=== PATIENT | male | born 1985 | race Caucasian/White ===

== ENCOUNTER 2017-03-04 19:28 | Inpatient (IN) | payer OTHER ==
--- NOTE | 2017-03-04 22:12 | ER Document Report ---
ED Medical Screen (RME) - General Chief Complaint: Abdominal Pain Stated Complaint: ABDOMINAL PAIN Time Seen by Provider: 03/04/17 22:10 Notes: Patient is a 31-year-old male who comes emergency department for chief complaint of right lower quadrant pain that started last night but became more noticeable today, he states that it hurts more to walk and improves when he is holding still. He denies radiation of pain. He denies vomiting. He had a normal and slightly loose bowel movement earlier. He denies any surgeries or daily medications. TRAVEL OUTSIDE OF THE [place] IN LAST 30 DAYS: No - Related Data Allergies/Adverse Reactions: No Known Allergies Allergy (Unverified 03/04/17 20:22) Past Medical History Renal/ Medical History: Denies: Hx Peritoneal Dialysis Physical Exam - Vital signs Vitals: Temp Pulse Resp BP Pulse Ox 99.0 F 112 H 18 123/84 97 03/04/17 20:20 03/04/17 20:20 03/04/17 20:20 03/04/17 20:20 03/04/17 20:20 - Abdominal Tenderness: Tender - Tender in right lower quadrant, otherwise unremarkable abdomen, exam limited by sitting position Course - Re-evaluation Re-evalutation: Is a young male with tenderness in the right lower quadrant only, worsening since yesterday, initiating drinking of contrast pending better evaluation of abdomen in a room 03/04/17 22:12 I have greeted and performed a rapid initial assessment of this patient. A comprehensive ED assessment and evaluation of the patient, analysis of test results and completion of the medical decision making process will be conducted by additional ED providers. - Vital Signs Vital signs: Temp Pulse Resp BP Pulse Ox 99.0 F 112 H 18 123/84 97 03/04/17 20:20 03/04/17 20:20 03/04/17 20:20 03/04/17 20:20 03/04/17 20:20
[2017-03-04 22:42] LABS: ABSOLUTE BASOPHILS # (AUTO) 0.1 10^3/uL (0.0-0.2); ABSOLUTE MONOCYTES (AUTO) 1.1 10^3/uL (0.1-1.4); ABSOLUTE NEUT (AUTO) 8.9 10^3/uL (1.7-8.2); BASOPHILS % (AUTO) 0.9 % (0-2); EOSINOPHILS % (AUTO) 0.3 % (0-6); HEMATOCRIT 47.7 % (37.9-51.0); HEMOGLOBIN 15.5 g/dL (13.5-17.0); HGB HCT DIFFERENCE -1.2; LYMPHOCYTES % (AUTO) 16.8 % (13-45); MEAN CORPUSCULAR HEMOGLOBIN 27.5 pg (27.0-33.4); MEAN CORPUSCULAR HGB CONC 32.4 g/dL (32.0-36.0); MEAN CORPUSCULAR VOLUME 85 fl (80-97); MONOCYTES % (AUTO) 8.9 % (3-13); RED BLOOD COUNT 5.63 10^6/uL (4.35-5.55); RED CELL DISTRIBUTION WIDTH 13.7 % (11.5-14.0); SEGMENTED NEUTROPHILS % (AUTO) 73.1 % (42-78); WHITE BLOOD COUNT 12.2 10^3/uL (4.0-10.5)
[2017-03-04 22:55] LABS: AMORPHOUS SEDIMENT,URINE TRACE /HPF; APPEARANCE,URINE SLIGHTLY-CLOUDY; BILIRUBIN,URINE NEGATIVE (NEGATIVE); GLUCOSE, URINE NEGATIVE (NEGATIVE); KETONES,URINE NEGATIVE (NEGATIVE); LEUKOCYTE ESTERASE,URINE NEGATIVE (NEGATIVE); NITRITE,URINE NEGATIVE (NEGATIVE); PROTEIN,URINE NEGATIVE (NEGATIVE); UROBILINOGEN,URINE NEGATIVE mg/dL (<2.0)
[2017-03-04 23:00] LABS: ALANINE AMINOTRANSFERASE 46 U/L (21-72); ALBUMIN 4.9 g/dL (3.5-5.0); ALKALINE PHOSPHATASE 71 U/L (38-126); ANION GAP 13 (5-19); ASPARTATE AMINO TRANSFERASE 23 U/L (17-59); BILIRUBIN,DIRECT 0.2 mg/dL (0.0-0.4); BILIRUBIN,TOTAL 0.7 mg/dL (0.2-1.3); BLOOD UREA NITROGEN 11 mg/dL (7-20); CARBON DIOXIDE 25 mmol/L (22-30); CHLORIDE 103 mmol/L (98-107); GLUCOSE 92 mg/dL (75-110); POTASSIUM 4.5 mmol/L (3.6-5.0); SODIUM 140.9 mmol/L (137-145); TOTAL PROTEIN 7.7 g/dL (6.3-8.2)
[2017-03-04] MEDS ORDERED: NORMAL SALINE 1000 ML 1,000 ML IV ONE (23:04)
--- NOTE | 2017-03-04 23:04 | ER Document Report ---
ED GI/ - General Mode of Arrival: Ambulatory Information source: Patient TRAVEL OUTSIDE OF THE [place] IN LAST 30 DAYS: No - HPI Patient complains to provider of: Abdominal pain Onset: Other - Refer to HPI notes Location: RLQ Associated symptoms: Nausea <YOBANY RAMÍREZ - Last Filed: 03/05/17 00:43> - HPI Pain Level: 5 <AKOSUA MULLEN - Last Filed: 03/05/17 02:46> - General Chief Complaint: Abdominal Pain Stated Complaint: ABDOMINAL PAIN Time Seen by Provider: 03/04/17 22:10 Notes: Patient is a 31 year old male presenting to the emergency department for right lower quadrant abdominal pain onset since last night. Patient also had some diarrhea and nausea. Patient describes his pain as sharp and it is exacerbated with walking. Patient's last PO was ice cream around 17:00 and has drank lots of water today. Patient denies any fever. Patient has no known allergies. ( YOBANY RAMÍREZ) - Related Data Allergies/Adverse Reactions: No Known Allergies Allergy (Unverified 03/04/17 20:22) Past Medical History - General Information source: Patient - Social History Smoking Status: Never Smoker Cigarette use (# per day): No Chew tobacco use (# tins/day): No Frequency of alcohol use: None Drug Abuse: None Family History: None Patient has suicidal ideation: No Patient has homicidal ideation: No - Medical History Medical History: Negative Surgical Hx: Negative <YOBANY RAMÍREZ - Last Filed: 03/05/17 00:43> Review of Systems - Review of Systems Constitutional: No symptoms reported EENT: No symptoms reported Cardiovascular: No symptoms reported Respiratory: No symptoms reported Gastrointestinal: See HPI, Abdominal pain, Nausea Genitourinary: No symptoms reported Male Genitourinary: No symptoms reported Musculoskeletal: No symptoms reported Skin: No symptoms reported Hematologic/Lymphatic: No symptoms reported Neurological/Psychological: No symptoms reported -: Yes All other systems reviewed and negative <YOBANY RAMÍREZ - Last Filed: 03/05/17 00:43> Physical Exam - Vital signs Interpretation: Tachycardic <YOBANY RAMÍREZ - Last Filed: 03/05/17 00:43> <AKOSUA MULLEN - Last Filed: 03/05/17 02:46> - Vital signs Vitals: Temp Pulse Resp BP Pulse Ox 99.0 F 112 H 18 123/84 97 03/04/17 20:20 03/04/17 20:20 03/04/17 20:20 03/04/17 20:20 03/04/17 20:20 - Notes Notes: GENERAL: Alert, interacts well. No acute distress. HEAD: Normocephalic, atraumatic. EYES: Pupils equal, round, and reactive to light. Extraocular movements intact. ENT: Oral mucosa moist, tongue midline. NECK: Full range of motion. Supple. Trachea midline. LUNGS: Clear to auscultation bilaterally, no wheezes, rales, or rhonchi. No respiratory distress. HEART: Regular rate and rhythm. No murmurs, gallops, or rubs. ABDOMEN: RLQ tenderness to palpation not over McBurney's point. Non-distended. Bowel sounds present in all 4 quadrants. EXTREMITIES: Moves all 4 extremities spontaneously. No edema, radial pulses 2/4 bilaterally. No cyanosis. NEUROLOGICAL: Alert and oriented x3. Normal speech. PSYCH: Normal affect, normal mood. SKIN: Warm, dry, normal turgor. No rashes or lesions noted. (YOBANY RAMÍREZ) Course - Laboratory Result Diagrams: 03/04/17 22:15 03/04/17 22:15 <YOBANY RAMÍREZ - Last Filed: 03/05/17 00:43> - Laboratory Result Diagrams: 03/04/17 22:15 03/04/17 22:15 <AKOSUA MULLEN - Last Filed: 03/05/17 02:46> - Re-evaluation Re-evalutation: 03/05/17 01:55 CBC shows slight leukocytosis of 12.2 otherwise unremarkable, CMP unremarkable, urinalysis unremarkable, CT scan of the abdomen and pelvis shows early appendicitis without any signs of rupture. 03/05/17 01:[address] May who agrees to accept the patient to his service. He gave initial orders for antibiotics and he will do surgery on the patient during the day. (AKOSUA MULLEN) - Vital Signs Vital signs: Temp Pulse Resp BP Pulse Ox 98.5 F 79 16 115/71 97 03/05/17 02:28 03/05/17 02:28 03/05/17 02:28 03/05/17 02:28 03/05/17 02:28 - Laboratory Laboratory results interpreted by me: 03/04/17 22:15 WBC 12.2 H RBC 5.63 H Absolute Neutrophils 8.9 H Discharge <YOBANY RAMÍREZ - Last Filed: 03/05/17 00:43> - Discharge Admitting Provider: Surgicalist - [facility] Unit Admitted: Surgical Floor <AKOSUA MULLEN - Last Filed: 03/05/17 02:46> - Discharge Clinical Impression: Acute appendicitis Qualifiers: Acute appendicitis type: other Qualified Code(s): K35.89 - Other acute appendicitis Condition: Stable Disposition: ADMITTED INPATIENT Scribe Attestation: 03/05/17 02:46 I personally performed the services described in the documentation, reviewed and edited the documentation which was dictated to the scribe in my presence, and it accurately records my words and actions. (AKOSUA MULLEN) Scribe Documentation - Scribe Written by Scribe:: Lilian Bradley 03/05/2017 00:43 acting as scribe for :: Raj <YOBANY RAMÍREZ - Last Filed: 03/05/17 00:43>
[2017-03-05] MEDS ORDERED: HYDROMORPHONE HCL INJ/PF 2 MG/ML AMPULE IV ONE (01:54)
--- NOTE | 2017-03-05 01:58 | RADIOLOGY REPORT (SQ) ---
EXAM DESCRIPTION: CT ABD/PELVIS WITH IV ORAL COMPLETED DATE/TIME: 03/05/2017 1:38 am REASON FOR STUDY: RLQ pain COMPARISON: None. TECHNIQUE: CT scan of the abdomen and pelvis performed using helical scanning technique with dynamic intravenous contrast injection and with oral contrast. Images reviewed with lung, soft tissue, and b one windows. Reconstructed coronal and sagittal MPR images reviewed. Delayed images for evaluation of the urinary system also acquired. All images stored on PACS. All CT scanners at this facility use dose modulation, iterative reconstruction, and/or weight based d osing when appropriate to reduce radiation dose to as low as reasonably achievable (ALARA). [facility]: Dose Right [facility]: CareDose [facility]: Dose Right [facility]: Teradose 4D [facility]: [employer]ights CONTRAST TYPE AND DOSE: contrast/concentration: Isovue 370.00 mg/ml; Total Contrast Delivered: 99.0 ml; Total Saline Delivered: 72.0 ml RENAL FUNCTION: None required. The patient is less than 50 years old. RADIATION DOSE: Up-to-date CT equipment and radiation dose reduction techniques were employed. CTDIv ol: 10.2 mGy. DLP: 1178 mGy-cm.. LIMITATIONS: None. FINDINGS: LOWER CHEST: No consolidation or pleural effusion. LIVER: Normal size. No masses. No dilated ducts. SPLEEN: Normal size. PANCREAS: No significant calcifications. No adjacent inflammation or peripancreatic fluid collections . Pancreatic duct not dilated. GALLBLADDER: Present. ADRENAL GLANDS: No significant masses or asymmetry. RIGHT KIDNEY AND URETER: No significant calcifications. No hydronephrosis or hydroureter. LEFT KIDNEY AND URETER: Subcentimeter hypodense area at the interpolar region of the left kidney, too small to be accurately characterize. No significant calcifications. No hydronephrosis or hydroure ter. AORTA AND VESSELS: No abdominal aortic aneurysm. Renal arteries, SMA, celiac without stenosis. RETROPERITONEUM: No retroperitoneal hemorrhage or masses. BOWEL AND PERITONEAL CAVITY: No small bowel obstruction, oral contrast is present in the colon. No f ree fluid or free air. APPENDIX: Dilated to 10 mm. There is mild periappendiceal soft tissue stranding. No adjacent fluid collection to suggest abscess formation at this time. PELVIS: The urinary bladder is distended. No pelvic mass. No free fluid. ABDOMINAL WALL: Small fat containing umbilical hernia. Small fat containing left inguinal hernia. BONES: No acute findings. IMPRESSION: Acute appendicitis. COMMENT: Pertinent findings on the imaging study reported as a CRITICAL RESULT to Dr. Anthony At01:4 8 hrs on 03/05/2017. Category of Critical Result: Acute appendicitis. TECHNICAL DOCUMENTATION: JOB ID: [id number] Quality ID # [id number]: Final reports with documentation of one or more dose reduction techniques (e.g., Au tomated exposure control, adjustment of the mA and/or kV according to patient size, use of iterative reconstruction technique) 2010 [employer]- All Rights Reserved
[2017-03-05] MEDS: CEFAZOLIN 2 GM/D5W RTU 2 GM/50 ML RTUPB IV SCH ×4 (02:45→20:12)
[2017-03-05] MEDS: ONDANSETRON HCL INJ/PF 4 MG/2 ML SDV IV PRN ×3 (02:53→22:48)
[2017-03-05] MEDS: RINGERS SOLUTION,LACTATED 1,000 ML IV PRN ×3 (03:47→17:41)
[2017-03-05] MEDS ORDERED: ONDANSETRON HCL INJ/PF 4 MG/2 ML SDV ONE (08:55)
[2017-03-05] MEDS ORDERED: GLYCOPYRROLATE INJ 0.4 MG/2 ML VIAL ONE (08:55)
[2017-03-05] MEDS ORDERED: DEXAMETHASONE SOD PHOSPHATE INJ 4 MG/1 ML VIAL ONE (08:55)
[2017-03-05] MEDS ORDERED: NEOSTIGMINE METHYLSULFATE 10 MG/10 ML VIAL ONE (08:55)
[2017-03-05] MEDS ORDERED: SUCCINYLCHOLINE CHLORIDE INJ 200 MG/10 ML VIAL ONE (08:55)
[2017-03-05] MEDS ORDERED: LIDOCAINE 2% INJ-PF (20 MG/ML) 10 ML AMPUL ONE (08:55)
--- NOTE | 2017-03-05 10:35 | PDOC H&P ---
History of Present Illness Admission Date/PCP: 03/05/17 01:59 Patient complains of: Right lower quadrant pain History of Present Illness: ROGERIO MUSTAFA is a 31-year-old male who comes emergency department for chief complaint of right lower quadrant pain that started last night but became more noticeable as time went by. He states that it hurts more to walk and improves when he is holding still. He denies radiation of pain. He denies vomiting. He had a normal and slightly loose bowel movement earlier. Patient underwent physical examination where tenderness of the right lower quadrant tenderness with mild guarding was noted. Laboratory evaluation revealed a mild leukocytosis, and CT scan revealed evidence of early appendicitis. Surgical referral was then made. Social History Smoking Status: Never Smoker Frequency of Alcohol Use: None Hx Recreational Drug Use: No Hx Prescription Drug Abuse: No - Advance Directive Resuscitation Status: Full Code Family History Family History: None Parental Family History Reviewed: No Children Family History Reviewed: No Sibling(s) Family History Reviewed.: No Medication/Allergy Home Medications: No Home Medications 03/05/17 Allergies/Adverse Reactions: No Known Allergies Allergy (Unverified 03/04/17 20:22) Physical Exam Vital Signs: Temp Pulse Resp BP Pulse Ox 97.8 F 62 18 109/54 L 99 03/05/17 08:15 03/05/17 08:15 03/05/17 08:15 03/05/17 08:15 03/05/17 08:15 Intake & Output 03/04/17 03/05/17 03/06/17 06:59 06:59 06:59 Intake Total 0 Output Total 0 Balance 0 General appearance: PRESENT: no acute distress, cooperative, well-developed, well-nourished Head exam: PRESENT: atraumatic, normocephalic Eye exam: PRESENT: conjunctiva pink, EOMI, PERRLA Mouth exam: PRESENT: moist, neck supple, tongue midline Neck exam: PRESENT: full ROM. ABSENT: JVD, lymphadenopathy, tenderness, thyromegaly, tracheal deviation Respiratory exam: PRESENT: clear to auscultation michael, symmetrical, unlabored Cardiovascular exam: PRESENT: RRR GI/Abdominal exam: PRESENT: guarding, normal bowel sounds, soft, tenderness - In the right lower quadrant. Neurological exam: PRESENT: alert, awake Psychiatric exam: PRESENT: appropriate affect Results Impressions: Abdomen/Pelvis CT 03/05/17 00:00 IMPRESSION: Acute appendicitis. Assessment & Plan - Diagnosis (1) Acute appendicitis Qualifiers: Acute appendicitis type: other Qualified Code(s): K35.89 - Other acute appendicitis - Plan Summary Plan Summary: Laparoscopic appendectomy will be performed today.
[2017-03-05] MEDS ORDERED: BUPIVACAINE HCL 0.5 % INJ/PF 30 ML SDV ONE (13:05)
[2017-03-05] MEDS ORDERED: MIDAZOLAM 2 MG/2 ML INJ ONE (14:08)
[2017-03-05] MEDS ORDERED: PROPOFOL INJ 200 MG/20 ML VIAL IV ONE (14:08)
[2017-03-05] MEDS ORDERED: FENTANYL CITRATE INJ/PF 250 MCG/5 ML AMPULE ONE (14:08)
[2017-03-05] MEDS ORDERED: MORPHINE SULFATE 10 MG/ML INJ ONE (14:09)
[2017-03-05] MEDS ORDERED: CEFAZOLIN INJ 1 GM VIAL ONE (14:16)
[2017-03-05] MEDS ORDERED: HYDROMORPHONE HCL INJ/PF 2 MG/ML AMPULE ONE (14:50)
[2017-03-05] MEDS ORDERED: PROMETHAZINE HCL INJ 25 MG/1 ML VIAL IV PRN (14:56)
[2017-03-05] MEDS ORDERED: MORPHINE SULFATE 10 MG/ML INJ IV PRN (15:38)
--- NOTE | 2017-03-05 15:47 | Brief Operative Note ---
BRIEF OPERATIVE REPORT DATE OF SURGERY: 03/05/17 TIME OF SURGERY: 15:00 PREOPERATIVE DIAGNOSIS: Acute appendicitis POSTOPERATIVE DIAGNOSIS: Same SURGEON: ALBA CALVO FINDINGS: Acute appendicitis COMPLICATIONS: None ESTIMATED BLOOD LOSS: 10cc TISSUE REMOVED OR ALTERED: Appendix TECHNICAL PROCEDURE: See dictation
--- NOTE | 2017-03-05 16:23 | OPERATIVE REPORT E ---
Operative Report NAME: ROGERIO MUSTAFA : 1985 AGE: 31Y DATE OF SURGERY: 03/05/2017 ROOM: 415 PREOPERATIVE DIAGNOSIS: Acute appendicitis. POSTOPERATIVE DIAGNOSIS: Acute appendicitis. PROCEDURE: Laparoscopic appendectomy. SURGEON: ALBA CALVO M.D. ANESTHESIA: General. REPLACEMENT: Crystalloids. DRAINS: None. COMPLICATIONS: None. CONDITION: Stable. FINDINGS: Patient had erythematous dilated appendix without evidence of perforation or abscess formation. PROCEDURE: The patient was brought to the operating room suite and placed in the supine position on the operating room table. Monitoring devices were attached. IV sedation was administered, followed by the induction of general endotracheal anesthesia. The patient's abdomen was prepped and draped in the usual sterile manner and then a timeout was achieved. After all concurred, Marcaine was injected just below the umbilicus and this was followed by an incision through the skin and subcutaneous tissue down to the linea alba. Two 0 Vicryl stay sutures were placed on the linea alba and then an incision was made between the 2 stay sutures. We then grasped the peritoneum with 2 hemostats, an incision was made between the tips of both and the peritoneal cavity was entered. Visual exploration was done to ensure there were viscera adherent to the anterior abdominal wall. We inserted our Lauren trocar and secured with two 0 Vicryl stay sutures. We inserted a laparoscopic camera and light source and insufflated the abdomen with CO2. There was no evidence of any bleeding or injuries. We then placed our remaining 2 trocars in the usual anatomical positions, one in the mid suprapubic region and one in the left lower quadrant. We then inserted the laparoscopic Keisha and the [place] and we identified the appendix immediately and it was lifted anteriorly and we made an opening in the mesoappendix. We inserted the endoscopic SUZIE with the tissue load and the appendix was resected from the base of the cecum. We then reloaded the endoscopic SUZIE for a vascular load and the mesoappendix was taken down in 2 firings. After dividing the mesoappendix, we then placed the appendix in the Endobag and removed it from the abdominal cavity. We irrigated the area of the right lower quadrant and found no evidence of any bleeding. When hemostasis was assured, we removed all trocars under direct vision and decompressed the abdomen. We approximated the infraumbilical fascial site using continuous 0 Vicryl on a UR-6 needle and then all skin incisions were closed using skin kenan. The patient tolerated the procedure well. Sponge and instrument count was correct and the patient was discharged to the PACU in a stable condition. DICTATING PHYSICIAN: ALBA CALVO M.D. [id number] PHY#: [id number] ID: [id number] JOB#: [id number] ACCT: [id number] cc:ALBA CALVO M.D. >
[2017-03-05] MEDS: DIPHENHYDRAMINE HCL 50 MG/ML VIAL IV PRN ×2 (17:23→17:25)
[2017-03-05] MEDS: FENTANYL CITRATE INJ/PF 100 MCG/2 ML AMPUL IV PRN ×6 (17:23→17:25)
[2017-03-05] MEDS: MEPERIDINE HCL/PF INJ 25 MG/1 ML DISP.SYRIN IV PRN ×2 (17:23→17:25)
[2017-03-06] MEDS: CEFAZOLIN 2 GM/D5W RTU 2 GM/50 ML RTUPB IV SCH ×2 (02:28→10:19)
[2017-03-06 08:03] VITALS: BP 117/72
--- NOTE | 2017-03-06 08:46 | PDOC PROGRESS REPORT ---
Subjective Progress Note for:: 03/06/17 Subjective:: Feels much better. Tolerating diet. Ambulating well. Physical Exam Vital Signs: Temp Pulse Resp BP Pulse Ox 98.4 F 68 18 117/72 99 03/06/17 08:00 03/06/17 08:00 03/06/17 08:00 03/06/17 08:00 03/06/17 08:00 Intake & Output 03/05/17 03/06/17 03/07/17 06:59 06:59 06:59 Intake Total 0 3700 Output Total 0 1070 Balance 0 2630 General appearance: PRESENT: no acute distress, cooperative Respiratory exam: PRESENT: clear to auscultation michael Cardiovascular exam: PRESENT: RRR GI/Abdominal exam: PRESENT: other - Soft, nondistended, minimal tenderness. Wound clean dry and intact. Extremities exam: PRESENT: other Results Impressions: Abdomen/Pelvis CT 03/05/17 00:00 IMPRESSION: Acute appendicitis. Assessment & Plan - Diagnosis (1) Acute appendicitis Qualifiers: Acute appendicitis type: other Qualified Code(s): K35.89 - Other acute appendicitis Is this a current diagnosis for this admission?: YesPlan: Status post laparoscopic appendectomy. Patient doing very well. Will discharge patient home.
--- NOTE | 2017-03-06 09:09 | DISCHARGE SUMMARY E ---
Discharge Summary NAME: ROGERIO MUSTAFA : 1985 AGE: 31Y ADMITTED: 03/05/2017 DISCHARGED: 03/06/2017 DISCHARGE DIAGNOSIS: Appendicitis. PROCEDURE PERFORMED DURING HOSPITALIZATION: Laparoscopic appendectomy performed by Dr. May on 03/05/2017. HOSPITAL COURSE: The patient underwent the above-mentioned surgery. The patient did well postoperatively. He was tolerating a diet well, ambulating well, and was feeling much better. The patient has now been discharged to home in good condition. He was encouraged to stay active at home but avoid strenuous activity. He may advance his diet to a regular diet. DISCHARGE MEDICATIONS: Percocet 1 p.o. every 4 hours p.r.n. pain. FOLLOWUP: He will follow up at [facility] next week for staple removal. DICTATING PHYSICIAN: PRIYA DENG M.D. [id number] PHY#: [id number] ID: [id number] JOB#: [id number] ACCT: [id number] cc:Reid DELANEY PA >
[2017-03-06] MEDS: RINGERS SOLUTION,LACTATED 1,000 ML IV PRN (10:19)
[2017-03-06] MEDS ORDERED: MORPHINE SULFATE 10 MG/ML INJ IV PRN (13:50)
== END 2017-03-06 10:00 | disposition home or self-care (01) | DRG 343 ==
LOC: ER 19:28 → EH 03-05 01:59 → 4N 03-05 03:04
PROVIDERS: ADMIT Surgery; ATTEND Surgery
PROC: 0DTJ4ZZ Resection of Appendix, Percutaneous Endoscopic Approach (ICD-10-PCS; principal; 2017-03-05 14:30)
DX: K35.89 Other acute appendicitis (principal)
CPT/HCPCS: 36415; 74177; 80053; 81001; 840; 85025; 88304; 96360; 99285; J0330; J0690; J1100; J1170; J2250; J2270; J2405; J2704; J3010; J3490; J7030; J7120